=== PATIENT | female | born 1965 | race Caucasian/White ===

== ENCOUNTER 2017-08-06 09:40 | Inpatient (IN) ==
--- NOTE | 2017-08-05 22:37 | Discharge Summary ---
<Arleen Barrios E - Last Filed: 08/06/17 08:40> Date of Encounter: 08/06/17 - Discharge Diagnosis (1) Arthritis of left knee Priority: Primary Status: Chronic (2) Status post total left knee replacement Priority: Primary Status: Acute (3) FARAZ (obstructive sleep apnea) Priority: Secondary Status: Chronic (4) HTN (hypertension) Priority: Secondary Status: Chronic Qualifiers: Hypertension type: unspecified Qualified Code(s): I10 - Essential (primary ) hypertension (5) Hypothyroid Priority: Secondary Status: Chronic Qualifiers: Hypothyroidism type: unspecified Qualified Code(s): E03.9 - Hypothyroidism , unspecified (6) Frequent headaches Priority: Secondary Status: Chronic (7) GERD (gastroesophageal reflux disease) Priority: Secondary Status: Chronic Qualifiers: Esophagitis presence: esophagitis presence not specified Qualified Code(s) : K21.9 - Gastro-esophageal reflux disease without esophagitis (8) Obesity Priority: Secondary Status: Chronic Qualifiers: Obesity type: unspecified obesity type Obesity classification: unspecified obesity classification Serious obesity comorbidity presence: unspecified whether serious comorbidity present Qualified Code(s): E66.9 - Obesity, unspecified - Hospital Course Hospital course: Ms. Burns is a 51 year old female - Time Spent with Patient Total time spent providing and/or coordinating discharge services: - Discharge Medications Home Medications: Cetirizine HCl [24Hour Allergy] 10 mg PO DAILY 05/03/17 [History] Escitalopram [Lexapro] 10 mg PO DAILY 05/03/17 [History] Levothyroxine Sodium [Levo-T] 175 mcg PO 0630 05/03/17 [History] Lisinopril/Hydrochlorothiazide [Zestoretic 10-12.5 mg Tablet] 1 tab PO DAILY [History] Omeprazole [PriLOSEC] 40 mg PO DAILY 05/03/17 [History] Topiramate [Topamax] 100 mg PO HS 05/03/17 [History] Aspirin Enteric Coated [Aspirin EC] 325 mg PO BID 10 Days #20 tablet. [Rx] Allergies/Adverse Reactions: 3 Allergy/AdvReac Type Severity Reaction Status Date / Time acetaminophen Allergy Hives Verified 08/06/17 10:31 [From Robb-Mei] codeine Allergy Anaphylaxis Verified 08/06/17 10:31 hydrocodone Allergy Anaphylaxis Verified 08/06/17 10:31 Hydromorphone [From Dilaudid] Allergy Hives Verified 08/06/17 10:31 meperidine [From Demerol] Allergy Hives Verified 08/06/17 10:31 morphine Allergy Hives Verified 08/06/17 10:31 Oxycodone [From Percocet] Allergy Hives Verified 08/06/17 10:31 propoxyphene Allergy Hives Verified 08/06/17 10:31 [From Darvocet-N] Sulfa (Sulfonamide Allergy Hives Verified 08/06/17 10:31 Antibiotics) sumatriptan [From Imitrex] Allergy Chest Pain Verified 08/06/17 10:31 tramadol [From Ultram] Allergy Hives Verified 08/06/17 10:31 Primary care physician: Gianna Escalona CNP - Patient Status Disposition: Home, Self-Care Condition: Good - Discharge Instructions Follow Up With: Gianna Escalona CNP [Primary Care Provider] - Patty La DO [Family Provider] - <Jadiel Ayala - Last Filed: 08/07/17 06:50> Orders not resulted at time of discharge: Pending orders 08/06/17 01:00 XR knee LT limited 1-2V [XR] Routine Hemoglobin and Hematocrit [HEME] Routine 08/06/17 10:57 US anesthesia pain block [US] Stat Date of Encounter: 08/07/17 Time of Encounter: 06:49 - Discharge Diagnosis (1) Obesity (BMI 35.0-39.9 without comorbidity) Priority: Secondary Status: Chronic (2) Arthritis of left knee Priority: Primary Status: Chronic (3) FARAZ (obstructive sleep apnea) Priority: Secondary Status: Chronic (4) Status post total left knee replacement Priority: Primary Status: Acute (5) HTN (hypertension) Priority: Secondary Status: Chronic Qualifiers: Hypertension type: unspecified Qualified Code(s): I10 - Essential (primary ) hypertension (6) Hypothyroid Priority: Secondary Status: Chronic Qualifiers: Hypothyroidism type: unspecified Qualified Code(s): E03.9 - Hypothyroidism , unspecified (7) GERD (gastroesophageal reflux disease) Priority: Secondary Status: Chronic Qualifiers: Esophagitis presence: esophagitis presence not specified Qualified Code(s) : K21.9 - Gastro-esophageal reflux disease without esophagitis - Hospital Course Hospital course: Ms. Burns is a 51 year old female Status post left total knee replacement The patient had an uneventful postoperative course. They received antibiotics and physical therapy and were discharged in stable condition. There will follow -up in the office in 2 weeks. - Time Spent with Patient Total time spent providing and/or coordinating discharge services: Primary care physician: Gianna Escalona CNP - Patient Status Functional capacity at discharge: uses cane/walker Overall status at discharge: patient is progressing back to baseline
--- NOTE | 2017-08-06 08:16 | Anesthesia Evaluation PreOp ---
Date of Encounter: 08/06/17 Time of Encounter: 10:40 - Past History Planned Operation: Left Total Knee Arthroplasty Cardiac History: HTN Pulmonary History: FARAZ Dx (recently diagnosed, does not have CPAP machine yet) LAWN CARETAKER History: Other (chronic pain) Other Medical History: Thyroid, GERD, Other (anxiety) Anesthesia History: No Prior Anesthetic Complications, Past Anesthesia ( hysteretcomy) Alcohol Use: occasionally Drug use: none Medications and Allergies Cetirizine HCl [24Hour Allergy] 10 mg PO DAILY 05/03/17 [History] Escitalopram [Lexapro] 10 mg PO DAILY 05/03/17 [History] Levothyroxine Sodium [Levo-T] 175 mcg PO 0630 05/03/17 [History] Lisinopril/Hydrochlorothiazide [Zestoretic 10-12.5 mg Tablet] 1 tab PO DAILY [History] Omeprazole [PriLOSEC] 40 mg PO DAILY 05/03/17 [History] Topiramate [Topamax] 100 mg PO HS 05/03/17 [History] Aspirin Enteric Coated [Aspirin EC] 325 mg PO BID 10 Days #20 tablet. [Rx] 3 Allergy/AdvReac Type Severity Reaction Status Date / Time acetaminophen Allergy Hives Verified 08/06/17 10:31 [From Darvocet-N] codeine Allergy Anaphylaxis Verified 08/06/17 10:31 hydrocodone Allergy Anaphylaxis Verified 08/06/17 10:31 Hydromorphone [From Dilaudid] Allergy Hives Verified 08/06/17 10:31 meperidine [From Demerol] Allergy Hives Verified 08/06/17 10:31 morphine Allergy Hives Verified 08/06/17 10:31 Oxycodone [From Percocet] Allergy Hives Verified 08/06/17 10:31 propoxyphene Allergy Hives Verified 08/06/17 10:31 [From Darvocet-N] Sulfa (Sulfonamide Allergy Hives Verified 08/06/17 10:31 Antibiotics) sumatriptan [From Imitrex] Allergy Chest Pain Verified 08/06/17 10:31 tramadol [From Ultram] Allergy Hives Verified 08/06/17 10:31 - Meds/Allergy Pre-op Review Medications Reviewed: Yes Allergies Reviewed: Yes Beta Blockers on Current Med List: No Anesthesia Results - Labs Laboratory Tests 07/13/17 07/13/17 07/13/17 11:03 11:03 11:03 WBC 11.0 Hgb 13.7 Hct 41.2 Plt Count 343 PT 10.8 INR 1.0 APTT 30.7 Sodium 139 Potassium 4.4 BUN 16 Creatinine 0.81 - Imaging EKG: report reviewed (04/27/2017 SINUS RHYTHM INFERIOR MYOCARDIAL INFARCTION, PROBABLY OLD) Additional studies: 07/11/2017 Stress Impression: Perfusion imaging was negative for ischemia or infarct. Anterior/anterolateral wall artifact. Low level exercise/ pharmacologic stress ECG is negative for ischemia at level of heart rate achieved. Gated EF > 70%. 07/11/2017 Echo Impressions: LVEF 60-65%. Moderate left ventricular diastolic dysfunction. Normal right ventricular structure and function. Mild mitral regurgitation. Mild aortic regurgitation. No pulmonary hypertension. Anesthesia Exam O2 Sat Height 1.6 m Height 1.6 m Weight 97.522 kg Weight 97.522 kg O2 Sat by Pulse Oximetry 97 Vital Signs Temp Pulse Resp BP Pulse Ox 98.6 F 84 18 131/83 97 08/06/17 10:16 08/06/17 10:16 08/06/17 10:16 08/06/17 10:16 08/06/17 10:16 Height: 5'3'' Weight: 215 lbs NPO (# of Hours): 8 Pain Scale: 2 (left knee) Pain Scale Used: Numeric (1 - 10) - HEENT Pupil (Motor): EOMI Mallampati: II Teeth: Normal Oral Opening: Greater than 3 - LAWN CARETAKER LOC: Oriented LAWN CARETAKER Motor: Normal RUE, Normal LUE, Normal RLE, Normal LLE, Normal Face LAWN CARETAKER Sensory: Normal: RUE, LUE, RLE, LLE, Face - Cardiac Rhythm: Regular Murmur: None - Pulmonary Breath Sounds: bilateral Clear Respiratory Effort: Symmetrical Anesthesia Assess/Plan ASA Score: 2 Modified Erwin Scale for Level of Consciousness: Cooperative, oriented, and tranquil Anesthetic Plan: General, Regional Monitoring Plan: Standard Monitors Recovery Plan: PACU
[2017-08-06] MEDS ORDERED: CeFAZolin Syr 2,000MG/20 ML 2,000 MG/20 ML SYRINGE IVPB ONE (09:57)
[2017-08-06] MEDS ORDERED: Ringers Solution, Lactated 1,000 ML IVC SCH ×2 (10:00→13:15)
--- NOTE | 2017-08-06 11:07 | History & Physical Report ---
Date of Encounter: 08/06/17 Time of Encounter: 11:07 24 Hour HP Update - Instructions Instructions: If the History and Physical is less than 30 days old and was completed prior to A.M. admission and or procedure and has NOT been updated on calendar day of procedure please complete this update prior to performing procedure. - Update Patient reports changes in Medical Condition: No Changes in examination, assessment, or condition: No Changes in Medication: No Preop tests/diagnostics Reviewed: Yes Surgery Remains Indicated: Yes Consent for Planned Operative Procedure(s) Verified: Yes - Pre-Operative Checklist Preoperative Checklist Indicated: No Prophylactic Antibiotic Ordered: Yes Is VTE Prophylaxis Indicated?: Yes
[2017-08-06] MEDS ORDERED: Ondansetron 4 MG/2 ML VIAL ONE (11:49)
[2017-08-06] MEDS ORDERED: Lidocaine -MPF 2% 2 ML VIAL ONE (11:49)
[2017-08-06] MEDS ORDERED: *HR* Propofol 200 MG/20 ML VIAL IVP ONE (11:49)
[2017-08-06] MEDS ORDERED: Dexamethasone 4 MG/ML VIAL ONE (11:49)
[2017-08-06] MEDS ORDERED: *HR* FentaNYL (PF) 100 MCG/2 ML VIAL ONE ×3 (11:49→15:22)
[2017-08-06] MEDS ORDERED: *HR* Midazolam HCl 2 MG/2 ML VIAL ONE (11:49)
[2017-08-06] MEDS ORDERED: ROPIVACAINE HCL/PF 0.5% 30 ML VIAL ONE (12:33)
[2017-08-06] MEDS ORDERED: Bupivacaine/Clonidine Syringe 1 EACH SYRINGE ONE (12:33)
[2017-08-06] MEDS ORDERED: Ethanol\\Acetic Acid\\Na Ace\\Ben 1,000 ML IRRIG.SOLN IR ONE (12:56)
--- NOTE | 2017-08-06 12:56 | Anesthesia Procedures ---
Date of Encounter: 08/06/17 Time of Encounter: 12:45 Procedures: Anesthesia - Nerve Block Procedure Date: 08/06/17 Time: 12:40 Surgical Procedure: left robotic total knee Checklist: Correct Patient Identifier, Correct procedure, History checked Correct side: Left Blood Thinner: No Monitor Applied: EKG, BP, Pulse Oximetry Sedation: Versed (mg): 2 Sedation: Fentanyl (mcg): 100 Block Type: Other (adductor canal, iPACK) Sterile Technique: Yes Ultrasound used: Yes Anatomy identified: Yes Visual spread of Local: No Neuro Stimulation: No Prep: Chlorhexadine Needle: 21 x 100 mm Stimuplex Local: 0.25% Bupivicaine w/Clonidine 20 mcg/cc (20 ml iPACK), Ropivacaine (0.5% 30 ml 30 ml adductor canal) Volume (cc): 50 total Number of Attempts: 1 Complications: None/effective block Vitals: O2 Sat Height 1.6 m Height 1.6 m Weight 97.522 kg Weight 97.522 kg O2 Sat by Pulse Oximetry 100 O2 Sat by Pulse Oximetry 97 Vital Signs Temp Pulse Resp BP Pulse Ox 98.6 F 84 18 131/83 97 08/06/17 10:16 08/06/17 10:16 08/06/17 10:16 08/06/17 10:16 08/06/17 10:16
[2017-08-06] MEDS ORDERED: Albuterol 2.5 MG/3 ML NEBULIZER IH ONE (13:04)
[2017-08-06] MEDS ORDERED: Ondansetron 4 MG/2 ML VIAL IVP ONE (13:04)
[2017-08-06] MEDS ORDERED: Acetaminophen IV 1,000 MG/100 ML INFUS..BTL IVPB ONE (13:04)
[2017-08-06] MEDS ORDERED: Naloxone 0.4 MG/ML INJ IVP PRN ×2 (13:04→17:16)
[2017-08-06] MEDS ORDERED: *HR* Promethazine 25 MG/ML VIAL IVP PRN (13:04)
[2017-08-06] MEDS ORDERED: EPHEDrine 50 MG/ML VIAL ONE (13:42)
--- NOTE | 2017-08-06 14:17 | Orthopedic Operative Note ---
Date of procedure: 08/06/17 Pre-op diagnosis: Left knee arthritis Post-op diagnosis: same Procedure: Procedure: Left robotic-assisted Total knee replacement Estimated blood loss:400 cc Hardware: Metal and polyethylene replacement. [place] Femur: 3 Tibia: 3 TS insert: 13 Patella: 36 Exam Under anesthesia: 1 degree hyperextension 7 degree varus as calculated by the robot full flexion and no instability Procedural Notes: Grade 4 arthritic changes medial compartment patellofemoral joint. Operative procedure: The patient was brought to the operating room and placed on the operating room table. After general anesthesia was administered the operative knee was examined. Findings were noted in the exam under anesthesia. The operative extremity was prepped and draped in sterile surgical fashion. The patient received IV antibiotics prior to skin incision. A standard midline incision was made centered over the patella. The incision was made through the skin and subcutaneous tissue. A medial parapatellar tendon approach was performed. Care was taken to preserve tissue along the medial aspect of the patella. And to protect the patella tendon. The deep MCL was released off the medial tibia. The infra patella fat pad was excised. The patella was everted and cut was made at the level of the insertion of the quadriceps and patella tendon. The patella was sized the guide was seated and the lug holes are drilled. Knee was brought into flexion. Patient noted to have grade 4 arthritic changes medial compartment and patellofemoral joint. Steinmann pins were placed in the tibia and the femur for the tibial and femoral arrays respectively. Checkpoints were also placed in the tibia and the femur for calculation purposes. The knee including the femur and the tibial registered. Osteophytes , ACL and PCL were excised at this point. Extension and flexion were assessed with a valgus stress components were adjusted on the computer to balance the knee. Femoral cuts were made first with robotic assistance, these included the anterior cut posterior cuts chamfer cuts. Tibial cut was then performed with robotic assistance as well. Bone fragments were removed, as well as the medial and lateral meniscus. The size 3 femoral guide was seated box cut was made lug holes are drilled. The size 3 tibial tray was seated and prepared with the fin cutter. Trial reduction with the 13 S Jeri revealed extension of 0 degree and 3 degree varus full flexion. No varus valgus instability. Trial reduction revealed excellent patella tracking. All trial components were removed all bony surfaces were irrigated. The Tibia was seated followed by the femur, The Jeri size 13 was seated and secured patella. Patient had similar findings for motion and stability. The knee was closed by the PA. The knee was then irrigated out with 2 L of pulse irrigation. The extensor mechanism was closed with #2 FiberWire suture and #2 PDS suture. The subcutaneous tissue was then irrigated and closed deep with #1 PDS suture superficially with 0 PDS suture and skin was closed with zip tie The patient was then placed in a sterile dressing and a postoperative brace extubated and transferred to recovery room in stable condition. Anesthesia: GETA Surgeon: Jadiel Ayala Was there an account assistant present: Yes Loss Prevention Research Engineer: Shana Ellis Estimated blood loss (cc): 400 Condition: stable Disposition: PACU
[2017-08-06] MEDS: *HR* Meperidine 25 MG/ML SYRINGE IVP PRN ×2 (15:00→15:15)
[2017-08-06] MEDS: MORPHINE SUL Oral CONC 10 MG/0.5 ML ORAL.SYG SL PRN ×2 (15:08→15:18)
[2017-08-06] MEDS: *HR* FentaNYL (PF) 100 MCG/2 ML VIAL IVP PRN ×2 (15:22→15:32)
[2017-08-06 15:24] LABS: Hematocrit 36.2 % (35.3-44.9); Hemoglobin 12.3 g/dL (11.5-15.4)
[2017-08-06] MEDS: *HR* HYDROmorphone (PF) 1 MG/ML SYRINGE IVP PRN ×2 (16:09→16:19)
[2017-08-06] MEDS ORDERED: Ondansetron 4 MG/2 ML VIAL IVP PRN (17:16)
[2017-08-06] MEDS ORDERED: Sennosides 8.6 MG TABLET PO PRN (17:16)
[2017-08-06] MEDS ORDERED: Temazepam 15 MG CAPSULE PO PRN (17:16)
[2017-08-06] MEDS ORDERED: MOM Conc 10 ML UD.LIQ PO PRN (17:16)
[2017-08-06] MEDS ORDERED: CeFAZolin Pre 2,000 MG/100 ML 2,000 MG/100 ML BAG IVPB SCH (17:16)
--- NOTE | 2017-08-06 17:16 | Anesthesia Evaluation Post Op ---
Date of Encounter: 08/06/17 Time of Encounter: 17:16 Notes: Patient's vital signs have been reviewed. Patient is stable postoperatively and has adequately recovered from anesthesia. Patient is determined to have stable airway patency and respiratory function including respiratory rate and oxygen saturation. Patient has a stable heart rate, blood pressure and adequate hydration. Patients mental status is acceptable. Patients temperature is appropriate. Pain and nausea are adequately controlled. - Discharge PostOp Status: Transfer Patient to floor
[2017-08-06] MEDS ORDERED: *HR* Enoxaparin 30 MG/0.3 ML SYRINGE SQ SCH (18:00)
[2017-08-06] MEDS: *HR* Enoxaparin 30 MG/0.3 ML SYRINGE SQ SCH (19:50)
[2017-08-06] MEDS: Ketorolac 30 MG/ML VIAL IVP PRN (19:51)
[2017-08-06] MEDS: Topiramate 100 MG TABLET PO SCH (19:51)
[2017-08-06] MEDS: Gabapentin 300 MG CAPSULE PO SCH (19:51)
[2017-08-06] MEDS: Acetaminophen IV 1,000 MG/100 ML INFUS..BTL IVPB SCH (20:30)
[2017-08-06] MEDS: CeFAZolin Pre 2,000 MG/100 ML 2,000 MG/100 ML BAG IVPB SCH (21:49)
[2017-08-07 01:22] LABS: Hematocrit 31.6 % (35.3-44.9)
[2017-08-07 01:35] LABS: Hemoglobin 10.6 g/dL (11.5-15.4)
[2017-08-07 01:42] LABS: BUN/Creatinine Ratio 20 (6-26); Blood Urea Nitrogen 16 mg/dL (6-20); Calcium 8.5 mg/dL (8.6-10.3); Carbon Dioxide 27 mEq/L (23-29); Chloride 103 mEq/L (98-107); Glucose 149 mg/dL (70-105); Osmolality,Calculated 284 (280-300); Potassium 4.1 mEq/L (3.5-5.1); Sodium 135 mEq/L (136-145); eGFR For African Americans > 60 (> 60); eGFR For Non-African Americans > 60 (> 60)
[2017-08-07] MEDS: Acetaminophen IV 1,000 MG/100 ML INFUS..BTL IVPB SCH ×3 (02:27→11:53)
[2017-08-07] MEDS: *HR* Enoxaparin 30 MG/0.3 ML SYRINGE SQ SCH ×2 (05:49→16:53)
[2017-08-07] MEDS: Ketorolac 30 MG/ML VIAL IVP PRN (05:49)
[2017-08-07] MEDS: CeFAZolin Pre 2,000 MG/100 ML 2,000 MG/100 ML BAG IVPB SCH (05:49)
--- NOTE | 2017-08-07 06:50 | Orthopedics Progress Note ---
Date of Encounter: 08/07/17 Time of Encounter: 06:50 - Assessment and Plan (1) Obesity (BMI 35.0-39.9 without comorbidity) Current Visit: Yes Status: Chronic (2) Arthritis of left knee Current Visit: No Status: Chronic (3) FARAZ (obstructive sleep apnea) Current Visit: No Status: Chronic (4) Status post total left knee replacement Current Visit: No Status: Acute (5) HTN (hypertension) Current Visit: No Status: Chronic Qualifiers: Hypertension type: unspecified Qualified Code(s): I10 - Essential (primary ) hypertension (6) Hypothyroid Current Visit: No Status: Chronic Qualifiers: Hypothyroidism type: unspecified Qualified Code(s): E03.9 - Hypothyroidism , unspecified (7) GERD (gastroesophageal reflux disease) Current Visit: No Status: Chronic Qualifiers: Esophagitis presence: esophagitis presence not specified Qualified Code(s) : K21.9 - Gastro-esophageal reflux disease without esophagitis Subjective Interval history: Patient was seen this morning doing well without complaints. Afebrile vital signs stable. Operative extremity: Neurovascularly intact Dressing clean dry and intact Calves nontender Assessment and plan: Continue with postoperative care Hematocrit 31 discharged today Objective Vital signs: Vital Signs Temp Pulse Resp BP Pulse Ox 08/07/17 04:40 98.4 F 87 17 99/66 96 08/06/17 23:55 98 F 94 18 103/69 97 08/06/17 20:28 98.6 F 96 15 116/49 98 08/06/17 19:22 98.1 F 100 18 130/66 99 08/06/17 18:16 97.8 F 102 12 101/69 97 08/06/17 17:46 97.8 F 93 16 108/64 08/06/17 17:17 97.8 F 90 16 108/71 96 08/06/17 16:55 111 16 117/71 94 08/06/17 16:45 86 16 107/68 94 08/06/17 16:35 98 F 90 12 102/77 93 08/06/17 16:25 110 16 108/80 96 08/06/17 16:15 114 16 100/84 96 08/06/17 16:05 98.2 F 101 18 112/80 96 08/06/17 15:55 108 16 119/91 98 08/06/17 15:45 112 16 114/75 97 04/30/18 15:35 98.1 F 105 14 106/85 98 08/06/17 15:25 85 16 114/82 96 08/06/17 15:15 98 20 116/88 97 08/06/17 15:05 96 20 120/31 98 08/06/17 14:55 99.2 F 75 16 134/92 95 08/06/17 13:06 70 127/79 99 08/06/17 12:35 77 137/93 100 08/06/17 10:16 98.6 F 84 18 131/83 97 Intake and Output 08/06/17 08/06/17 08/07/17 15:59 23:59 07:59 Intake Total 1100 / 1100 200 / 200 100 / 100 Output Total 400 / 400 750 / 750 Balance 700 / 700 -550 / -550 100 / 100 Intake: IV Fluids 1100 / 1100 200 / 200 100 / 100 Lactated Ringers 1,000 ML @ 25 1000 / 1000 mls/hr IVC .Q24H ANAI Rx#: [id number] Ofirmev 1,000 mg/100 ml 1,000 100 / 100 100 / 100 100 / 100 mg In 100 ml @ 400 mls/hr IVPB Q6H ANAI Rx#:[id number] Ancef Premix 2,000 MG/100 ML 2, 100 / 100 000 mg In 100 ml @ 200 mls/hr IVPB Q8H ANAI Rx#:[id number] Output: Urine 750 / 750 Estimated Blood Loss 400 / 400 Other: # Voids 1 1 Weight 97.522 kg - Labs CBC & BMP: 08/07/17 00:52 08/07/17 00:52 Labs: Abnormal lab results Hgb 10.6 g/dL (11.5-15.4) L D 08/07/17 00:52 Hct 31.6 % (35.3-44.9) L 08/07/17 00:52 Sodium 135 mEq/L (136-145) L 08/07/17 00:52 Glucose 149 mg/dL (70-105) H 08/07/17 00:52 Calcium 8.5 mg/dL (8.6-10.3) L 08/07/17 00:52 - VTE Documentation of Mechanical Device: Venous foot pump, device Consult Discharge Plan - Plan Referrals: Gianna Escalona, INTEL ANALYST [Primary Care Provider] - Patty La DO [Family Provider] -
[2017-08-07 07:08] VITALS: BP 105/74
[2017-08-07] MEDS: Gabapentin 300 MG CAPSULE PO SCH ×2 (08:36→15:36)
[2017-08-07] MEDS: Topiramate 100 MG TABLET PO SCH (08:42)
[2017-08-07] MEDS ORDERED: Loratadine 10 MG TABLET PO SCH (09:00)
[2017-08-07] MEDS: Ibuprofen 800 MG TABLET PO PRN ×2 (11:19→16:53)
[2017-08-07] MEDS: Ringers Solution, Lactated 1,000 ML IVC SCH (11:57)
--- NOTE | 2017-08-07 12:39 | Event Note ---
Date of Encounter: 08/07/17 Time of Encounter: 11:50 PCR- POD#1 L TKR Robotic 08/06/17 Jamie PCR - Patient seen at bedside. Labwork and medications reviewed. Pain control: Adequate - c/o swelling and calf tenderness - STAT doppler today r /o dvt. Participating in PT. All questions and concerns addressed. Educated on use of incentive spirometer, ambulation, and hydration. Patient educated on post-operative restrictions and care. Addressed: Patient requesting D/c Script of Morphine or Dilaudid. Patient states the dose of Morphine she received in PACU worked well but made her itchy. Discussed reexposure outside controlled environment with her history of anaphylaxis is ill-advised. Discussed with Dr. Ayala who would like to continue nonnarcotic based pain control. Patient to d/c with Ibuprofen 800mg TID, Acetaminophen 500mg QID, Gabapentin 600mg TID, and Cyclobenzaprine 10mg TID D/C plan: Home with outpatient therapy today after doppler
[2017-08-07] MEDS ORDERED: Apixaban 5 MG TABLET PO SCH (21:00)
== END 2017-08-07 18:03 | disposition home or self-care (01) | DRG 302 ==
LOC: SAMDAY 09:40 → 3NENU 17:10
PROVIDERS: ADMIT Orthopaedic Surgery; ATTEND Orthopaedic Surgery

== ENCOUNTER 2017-09-02 19:01 | Inpatient (IN) ==
[2017-09-02] MEDS ORDERED: 0.9 % Sodium Chloride 1,000 ML IVC ONE ×2 (19:15→21:07)
[2017-09-02 19:50] LABS: Basophils % 0.3 %; Eosinophils # 0.6 K/mcL (0.0-0.6); Eosinophils % 4.1 %; Hematocrit 32.8 % (35.3-44.9); Hemoglobin 11.3 g/dL (11.5-15.4); Immature Granulocytes % 0.4 % (0-4); Lymphocytes # 3.1 K/mcL (0.6-4.6); Lymphocytes % 22.2 %; Mean Corpuscular HGB Conc 34.5 g/dL (31.6-35.5); Mean Corpuscular Hemoglobin 31.3 pg (28.0-33.3); Mean Corpuscular Volume 90.9 fL (83.0-100.0); Mean Platelet Volume 10.1 fL (9.4-12.4); Monocytes # 0.8 K/mcL (0.0-1.3); Monocytes % 5.8 %; Neutrophils # 9.3 K/mcL (1.6-8.9); Platelet Count 356 K/mcL (140-400); Red Blood Count 3.61 M/mcL (3.82-4.97); Red Cell Distribution Width 13.4 % (11.5-14.5); Segmented Neutrophils % 67.2 %
[2017-09-02 20:09] LABS: Calcium 9.5 mg/dL (8.6-10.3); Magnesium 1.9 mg/dL (1.6-2.6); Phosphorous 3.5 mg/dL (2.7-4.5); Potassium 3.4 mEq/L (3.5-5.1)
--- NOTE | 2017-09-02 20:16 | Emergency Department Note ---
Disposition Clinical Impression: Lower extremity cellulitis Qualifiers: Laterality: left Qualified Code(s): L03.116 - Cellulitis of left lower limb Disposition: Admitted As Inpatient Condition: Good Referrals: Gianna Escalona CNP [Primary Care Provider] - Patty La DO [Family Provider] - General Adult HPI - General Chief complaint: ED Extremity Problem,Nontraumatic Stated complaint: L Knee Infection Time Seen by Provider: 09/02/17 19:07 Source: patient Limitations: no limitations - History of Present Illness Pain Scale: 3 - Related Data Home Medications Medication Instructions Recorded Confirmed Cetirizine HCl [24Hour Allergy] 10 mg PO DAILY 05/03/17 08/06/17 Escitalopram [Lexapro] 10 mg PO DAILY 05/03/17 08/06/17 Levothyroxine Sodium [Levo-T] [place] [address]/03/17 08/06/17 Lisinopril/Hydrochlorothiazide 1 tab PO DAILY 05/03/17 08/06/17 [Zestoretic 10-12.5 mg Tablet] Omeprazole [PriLOSEC] 40 mg PO DAILY 05/03/17 08/06/17 Topiramate [Topamax] 100 mg PO HS 05/03/17 08/06/17 Previous Rx's Medication Instructions Recorded Aspirin Enteric Coated [Aspirin EC] 325 mg PO BID 10 Days #20 tablet. 08/06/17 Allergies Allergy/AdvReac Type Severity Reaction Status Date / Time acetaminophen Allergy Hives Verified 08/06/17 10:31 [From Darvocet-N] codeine Allergy Anaphylaxis Verified 08/06/17 10:31 hydrocodone Allergy Anaphylaxis Verified 08/06/17 10:31 Hydromorphone [From Dilaudid] Allergy Hives Verified 08/06/17 10:31 meperidine [From Demerol] Allergy Hives Verified 08/06/17 10:31 morphine Allergy Hives Verified 08/06/17 10:31 Oxycodone [From Percocet] Allergy Hives Verified 08/06/17 10:31 propoxyphene Allergy Hives Verified 08/06/17 10:31 [From Darvocet-N] Sulfa (Sulfonamide Allergy Hives Verified 08/06/17 10:31 Antibiotics) sumatriptan [From Imitrex] Allergy Chest Pain Verified 08/06/17 10:31 tramadol [From Ultram] Allergy Hives Verified 08/06/17 10:31 Past Medical History - Past Medical History Medical history: Reports: cancer, GERD, hypertension Surgical history: Reports: cholecystectomy, hysterectomy Psychiatric history: Reports: no psych history - Social History Smoking Status: Never smoker Smokeless Tobacco Status: No Alcohol use: Reports: occasionally Drug use: Reports: none Physical Exam - General Limitations: no limitations General appearance: alert Course Vital Signs Temperature 98.0 F 09/02/17 19:02 Pulse Rate 115 09/02/17 19:02 Respiratory Rate 14 09/02/17 19:02 Blood Pressure 106/76 09/02/17 19:02 O2 Sat by Pulse Oximetry 99 09/02/17 19:02 Temperature 98.0 F 09/02/17 19:02 Pulse Rate 115 09/02/17 19:02 Respiratory Rate 14 09/02/17 19:02 Blood Pressure 106/76 09/02/17 19:02 O2 Sat by Pulse Oximetry 99 09/02/17 19:02 Oxygen Delivery Oxygen Delivery Room Air Medical Decision Making - Lab Data Result diagrams: 09/02/17 19:33 Lab Results 09/02/17 Range/Units 19:33 WBC 13.8 H (4.3-11.1) K/mcL RBC 3.61 L (3.82-4.97) M/mcL Hgb 11.3 L (11.5-15.4) g/dL Hct 32.8 L (35.3-44.9) % MCV 90.9 (83.0-100.0) fL MCH 31.3 (28.0-33.3) pg MCHC 34.5 (31.6-35.5) g/dL RDW 13.4 (11.5-14.5) % Plt Count 356 (140-400) K/mcL MPV 10.1 (9.4-12.4) fL Immature Gran % 0.4 (0-4) % Seg Neutrophils % 67.2 % Lymphocytes % 22.2 % Monocytes % 5.8 % Eosinophils % 4.1 % Basophils % 0.3 % Neutrophils # 9.3 H (1.6-8.9) K/mcL Lymphocytes # 3.1 (0.6-4.6) K/mcL Monocytes # 0.8 (0.0-1.3) K/mcL Eosinophils # 0.6 (0.0-0.6) K/mcL Basophils # 0.0 (0.0-0.2) K/mcL Attestation Statement - Attestation Attestation: I examined this patient and my medical decision-making was reviewed with the Resident Physician. I agree with the documented findings, disposition and treatment plan as described except to the extent set forth below. 51 yaima old talat presents to the ED with complaints of left knee cellulitis and the redness is worsening and had a total knee replacement per Dr. Ayala about 30 days ago and states that the incinsion site was healing well but in the pst few days she has been noticing incresed draingage fromthe incision site at the bottom and now the rednes is streaking down her legg. SHe is neurovasculary intact and and ambulatory. WE have consutld with Dr. Mccray renewable energy consultant ortho and he would ik jigar started on vanc and then admitted to medicine
--- NOTE | 2017-09-02 20:43 | Emergency Department Note ---
Disposition Clinical Impression: ERENDIRA (acute kidney injury) Lower extremity cellulitis Qualifiers: Laterality: left Qualified Code(s): L03.116 - Cellulitis of left lower limb Incisional infection Qualifiers: Encounter type: initial encounter Qualified Code(s): T81.4XXA - Infection following a procedure, initial encounter Disposition: Admitted As Inpatient Condition: Fair Time of Disposition: 21:48 Extremity Problem HPI - General Chief complaint: ED Extremity Problem,Nontraumatic Stated complaint: L Knee Infection Time Seen by Provider: 09/02/17 19:07 Source: patient Limitations: no limitations Nursing Notes Reviewed: Yes Vital Signs Reviewed: Yes - History of Present Illness HPI Narrative: Patient is a 51-year-old female who presents to [facility] ED with a chief complaint of left knee infection status post total knee replacement on 08/06/[address] Ayala. States she noted some redness 2 days ago around the lower part of the incision site. She called the orthopedic surgeon's office who placed her on Bactrim. States she has had 3 doses of this. The redness is spreading to involve the back area of her leg as well. States she has a lot of pain with palpation of that region. It started leaking [place] fluid today from the lower part of her incision site. Denies any fever or chills. States today she felt abnormal like she was drunk. No chest pain or difficulty breathing or abdominal pain. No problems with urination or bowel movements. Onset (ago): day(s) (2) Consistency: constant, Worsening Injury Location: left, lower extremity Pain Scale: 3 Quality: aching Radiation: none Improves with: nothing Worsens with: nothing Associated symptoms: Reports: change in appearance, swelling, redness. Denies: chest pain, shortness of breath, abdominal pain, back pain, fever - Related Data Home Medications Medication Instructions Recorded Confirmed Cetirizine HCl [24Hour Allergy] 10 mg PO DAILY 05/03/17 08/06/17 Escitalopram [Lexapro] 10 mg PO DAILY 05/03/17 08/06/17 Levothyroxine Sodium [Levo-T] 175 mcg PO 0630 05/03/17 08/06/17 Lisinopril/Hydrochlorothiazide 1 tab PO DAILY 05/03/17 08/06/17 [Zestoretic 10-12.5 mg Tablet] Omeprazole [PriLOSEC] 40 mg PO DAILY 05/03/17 08/06/17 Topiramate [Topamax] 100 mg PO HS 05/03/17 08/06/17 Previous Rx's Medication Instructions Recorded Aspirin Enteric Coated [Aspirin EC] 325 mg PO BID 10 Days #20 tablet. 08/06/17 Allergies Allergy/AdvReac Type Severity Reaction Status Date / Time acetaminophen Allergy Hives Verified 08/06/17 10:31 [From Darvocet-N] codeine Allergy Anaphylaxis Verified 08/06/17 10:31 hydrocodone Allergy Anaphylaxis Verified 08/06/17 10:31 Hydromorphone [From Dilaudid] Allergy Hives Verified 08/06/17 10:31 meperidine [From Demerol] Allergy Hives Verified 08/06/17 10:31 morphine Allergy Hives Verified 08/06/17 10:31 Oxycodone [From Percocet] Allergy Hives Verified 08/06/17 10:31 propoxyphene Allergy Hives Verified 08/06/17 10:31 [From Darvocet-N] Sulfa (Sulfonamide Allergy Hives Verified 08/06/17 10:31 Antibiotics) sumatriptan [From Imitrex] Allergy Chest Pain Verified 08/06/17 10:31 tramadol [From Ultram] Allergy Hives Verified 08/06/17 10:31 All systems ED: reviewed and negative except as stated. Past Medical History - Past Medical History Attestation: Yes The following information was validated with the patient. Source: patient Medical history: Reports: cancer, GERD, hypertension Surgical history: Reports: cholecystectomy, hysterectomy Psychiatric history: Reports: no psych history - Social History Smoking Status: Never smoker Smokeless Tobacco Status: No Alcohol use: Reports: occasionally Drug use: Reports: none Physical Exam - General Limitations: no limitations General appearance: alert - Head Head exam: atraumatic, normocephalic, normal inspection - Eye Eye exam: Present: normal appearance, EOMI - ENT ENT exam: normal exam, normal oropharynx, mucous membranes moist - Neck Neck exam: Present: normal inspection, full ROM, trachea midline - Chest Chest inspection: Present: normal inspection, symmetric chest wall rise - Respiratory Respiratory exam: Present: normal lung sounds bilaterally - Cardiovascular Cardiovascular exam: Present: normal rhythm, tachycardia, normal heart sounds - Abdominal Exam Abdominal exam: Present: soft, Non-Tender. Absent: tenderness, distention, guarding, rebound, rigidity - Extremities Exam Extremities exam: Present: normal inspection, full ROM. Absent: tenderness, pedal edema - Back Exam Back exam: Present: normal inspection, full ROM. Absent: tenderness - Neurological Exam Neurological exam: Present: alert, oriented X3 - Psychiatric Psychiatric exam: Present: normal affect, normal mood - Skin Skin exam: Present: warm, dry, intact, normal color Course Course Narrative: Patient seen and examined. Left knee infection. She has an area of erythema surrounding the lower part of her knee incision. There is purulent fluid coming out of it. Wound culture sent. She is tachycardic upon my exam. We will do an ED sepsis workup on her. We will start vancomycin on her get blood cultures as well as start a liter IVF. I discussed with on-call orthopedic surgeon Dr. Mccray who states to get a knee xray. Will see her in consult. No other recommended antibiotics at this time. - Reevaluation(s) Reevaluation #1: Labwork shows a leukocytosis of 13. Patient also has signs of acute kidney injury. Creatinine at 1.43, elevated from her baseline of 0.81. IVF given. Lab work otherwise unremarkable. I discussed with the hospitalist Dr. Guillermo who has accepted patient for admission. Time: 21:30 Vital Signs Temperature 98.0 F 09/02/17 19:02 Pulse Rate 115 09/02/17 19:02 Respiratory Rate 14 09/02/17 19:02 Blood Pressure 106/76 09/02/17 19:02 O2 Sat by Pulse Oximetry 99 09/02/17 19:02 Temperature 98.0 F 09/02/17 19:02 Pulse Rate 115 09/02/17 19:02 Respiratory Rate 14 09/02/17 19:02 Blood Pressure 106/76 09/02/17 19:02 O2 Sat by Pulse Oximetry 99 09/02/17 19:02 Oxygen Delivery Oxygen Delivery Room Air Extremity Problem, Nontraumati - Medical Records Medical records reviewed: Yes I reviewed the patient's medical records. - Lab Data Lab results reviewed: Yes I reviewed the patient's lab results. Result diagrams: 09/02/17 19:33 09/02/17 19:33 Lab Results 09/02/17 09/02/17 09/02/17 Range/Units 19:33 19:33 19:33 WBC 13.8 H (4.3-11.1) K/mcL RBC 3.61 L (3.82-4.97) M/mcL Hgb 11.3 L (11.5-15.4) g/dL Hct 32.8 L (35.3-44.9) % MCV 90.9 (83.0-100.0) fL MCH 31.3 (28.0-33.3) pg MCHC 34.5 (31.6-35.5) g/dL RDW 13.4 (11.5-14.5) % Plt Count 356 (140-400) K/mcL MPV 10.1 (9.4-12.4) fL Immature Gran % 0.4 (0-4) % Seg Neutrophils % 67.2 % Lymphocytes % 22.2 % Monocytes % 5.8 % Eosinophils % 4.1 % Basophils % 0.3 % Neutrophils # 9.3 H (1.6-8.9) K/mcL Lymphocytes # 3.1 (0.6-4.6) K/mcL Monocytes # 0.8 (0.0-1.3) K/mcL Eosinophils # 0.6 (0.0-0.6) K/mcL Basophils # 0.0 (0.0-0.2) K/mcL Sodium 133 L (136-145) mEq/L Potassium 3.4 L (3.5-5.1) mEq/L Chloride 101 (98-107) mEq/L Carbon Dioxide 22 L (23-29) mEq/L BUN 25 H (6-20) mg/dL Creatinine 1.43 H (0.60-1.20) mg/dL Est GFR ( Amer) 47 L (> 60) Est GFR (Non-Af Amer) 39 L (> 60) BUN/Creatinine Ratio 17 (6-26) Glucose 124 H (70-105) mg/dL Calculated Osmolality 282 (280-300) Lactic Acid 2.0 (0.5-2.2) mmol/L Calcium 9.5 (8.6-10.3) mg/dL Phosphorus 3.5 (2.7-4.5) mg/dL Magnesium 1.9 (1.6-2.6) mg/dL - Radiology Data Radiology results reviewed: Yes I reviewed the patient's radiology results. Knee X-Ray 09/02/17 19:39 IMPRESSION: 1. Left knee arthroplasty with no acute abnormality. D/ / Ronald Kendall MD / Ronald Kendall MD Interpreting Provider: Ronald Kendall MD
[2017-09-02] MEDS ORDERED: Naloxone 0.4 MG/ML INJ IVP PRN (21:12)
--- NOTE | 2017-09-02 21:38 | Internal Med History&Physical ---
Date of Encounter: 09/02/17 Time of Encounter: 21:30 Internal Medicine - H&P: HPI Chief complaint: left knee infection Admitted From: Emergency Dept Plans for Post Hospital Care: Home History of present illness: Ms. Burns is a 51 year old female with past medical history of Gerd, depression , hypertension, obesity, FARAZ, migraines, osteoarthritis of the left knee. Patient had left total knee replacement on 08/06. She states that yesterday afternoon she started to notice redness on the left knee. Her knee was also hot and tender. She called her orthopedic surgeon who prescribed her Bactrim without any relief. Erythematous part of her knee continue to enlarge, and the lower part of her surgical incision began to ooze fluid that was at 1st clear but then became yellow and pustular. She admits to being drowsy and having dry mouth. She denies nausea, vomiting, diarrhea, fever, chills, chest pain, shortness of breath, hematuria, hematochezia, melena. She was told to come in to the hospital for IV antibiotics. Upon arrival to the ED, her heart rate was 115, blood pressure 106/76, she had leukocytosis. Patient was given one dose of vancomycin in the emergency department and one fluid bolus. Blood in one cultures were drawn in the emergency department. Past Med Surg Social Fam HX - Past Medical History Medical history: cancer, GERD, hypertension Psychiatric history: no psych history - Past Surgical History Surgical History: cholecystectomy, hysterectomy - Social History Smoking Status: Never smoker Smokeless Tobacco Status: No Alcohol use: occasionally Drug use: none Internal Medicine - H&P: Meds Cetirizine HCl [24Hour Allergy] 10 mg PO DAILY 05/03/17 [History] Escitalopram [Lexapro] 10 mg PO DAILY 05/03/17 [History] Levothyroxine Sodium [Levo-T] 175 mcg PO 0630 05/03/17 [History] Lisinopril/Hydrochlorothiazide [Zestoretic 10-12.5 mg Tablet] 1 tab PO DAILY [History] Omeprazole [PriLOSEC] 40 mg PO DAILY 05/03/17 [History] Topiramate [Topamax] 100 mg PO HS 05/03/17 [History] Aspirin Enteric Coated [Aspirin EC] 325 mg PO BID 10 Days #20 tablet. [Rx] 3 Allergy/AdvReac Type Severity Reaction Status Date / Time acetaminophen Allergy Hives Verified 08/06/17 10:31 [From Darvocet-N] codeine Allergy Anaphylaxis Verified 08/06/17 10:31 hydrocodone Allergy Anaphylaxis Verified 08/06/17 10:31 Hydromorphone [From Dilaudid] Allergy Hives Verified 08/06/17 10:31 meperidine [From Demerol] Allergy Hives Verified 08/06/17 10:31 morphine Allergy Hives Verified 08/06/17 10:31 Oxycodone [From Percocet] Allergy Hives Verified 08/06/17 10:31 propoxyphene Allergy Hives Verified 08/06/17 10:31 [From Darvocet-N] Sulfa (Sulfonamide Allergy Hives Verified 08/06/17 10:31 Antibiotics) sumatriptan [From Imitrex] Allergy Chest Pain Verified 08/06/17 10:31 tramadol [From Ultram] Allergy Hives Verified 08/06/17 10:31 All Systems PM: A 10-system review of systems was performed and is negative for pertinent findings except as documented above in the HPI. - Constitutional Constitutional: as per HPI - EENT Eyes: as per HPI Ears: as per HPI Nose, mouth and throat: as per HPI - Breasts Breasts: as per HPI - Cardiovascular Cardiovascular ROS IM: as per HPI - Respiratory Respiratory: as per HPI - Gastrointestinal Gastrointestinal: as per HPI - Genitourinary Genitourinary: as per HPI Menstruation: as per HPI - Musculoskeletal Musculoskeletal ROS IM: as per HPI - Integumentary Integumentary IM: as per HPI - Neurological Neurological ROS: as per HPI - Psychiatric Psychiatric: as per HPI - Endocrine Endocrine IM: as per HPI - Hematologic/Lymphatic Hematologic/Lymphatic: as per HPI - Allergic/Immunologic Allergic/Immunologic: as per HPI - Constitutional Vitals: Temp Pulse Resp BP Pulse Ox 98.0 F 115 14 106/76 99 09/02/17 19:02 09/02/17 19:02 09/02/17 19:02 09/02/17 19:02 09/02/17 19:02 General appearance: Present: A&O X 3, pleasant, no acute distress, obese, answers questions appropriately - Head Head exam: Present: atraumatic, normocephalic - Neck Neck exam general surgery: Present: supple, trachea midline - Respiratory Respiratory exam: Present: CTAB - Cardiovascular Cardiovascular exam: Present: RRR, +S1, +S3 - GI/Abdominal GI/Abdominal exam: Present: normal bowel sounds, soft. Absent: distended, tenderness - Extremities Exam Extremities exam: Absent: cyanotic, pedal edema Additional comments: Left knee warm, tender, large area of erythema going up to the mid-chilel. Surgical scar present from recent left knee replacement, lower part of surgical scar is open with pustular fluid draining - Neurological Exam Neurological exam: Present: alert, oriented X3, no focal deficits - Psychiatric Psychiatric exam: Present: normal affect, normal mood Internal Med - H&P Results - Labs CBC & Chem 7: 09/02/17 19:33 09/02/17 19:33 - Assessment and plan (1) Severe sepsis Current Visit: Yes Status: Acute Assessment and plan: had left knee replacement on 08/06 with provoked DVT at that time as well. Upon arrival she had heart rate 115, leukocytosis, Erendira source of infection suspected left septic knee left knee x-ray showed no acute abnormality plan: NPO after midnight IV fluids vancomycin, Zosyn day 1 blood and wound cultures pending hold Xarelto for now in anticipation of surgery tomorrow EPCDs hold lisinopril/HCTZ due to ERENDIRA (2) Septic joint Current Visit: Yes Status: Acute Assessment and plan: Plan as above Qualifiers: Septic arthritis location: knee Septic arthritis organism: due to unspecified organism Laterality: left Qualified Code(s): M00.9 - Pyogenic arthritis, unspecified (3) Status post total left knee replacement Current Visit: No Status: Acute Assessment and plan: Plan as above (4) ERENDIRA (acute kidney injury) Current Visit: Yes Status: Acute Assessment and plan: Creatinine 1.43, baseline creatinine is normal. Suspect secondary to severe sepsis, volume depletion plan: continue fluid boluses with maintenance fluids recheck kidney function in a.m. (5) Arthritis of left knee Current Visit: No Status: Chronic (6) FARAZ (obstructive sleep apnea) Current Visit: No Status: Chronic (7) HTN (hypertension) Current Visit: No Status: Chronic Assessment and plan: Hold antihypertensives for now in setting of Erendira and severe sepsis Qualifiers: Hypertension type: unspecified Qualified Code(s): I10 - Essential (primary ) hypertension (8) Hypothyroid Current Visit: No Status: Chronic Assessment and plan: Resumed home medications when reconciled Qualifiers: Hypothyroidism type: unspecified Qualified Code(s): E03.9 - Hypothyroidism , unspecified (9) GERD (gastroesophageal reflux disease) Current Visit: No Status: Chronic Assessment and plan: Resumed home medications when reconciled Qualifiers: Esophagitis presence: esophagitis presence not specified Qualified Code(s) : K21.9 - Gastro-esophageal reflux disease without esophagitis (10) Obesity Current Visit: No Status: Chronic Qualifiers: Obesity type: unspecified obesity type Obesity classification: unspecified obesity classification Serious obesity comorbidity presence: unspecified whether serious comorbidity present Qualified Code(s): E66.9 - Obesity, unspecified (11) History of DVT (deep vein thrombosis) Current Visit: Yes Status: Acute Assessment and plan: Has history of provoked DVT from left knee replacement on 08/06 currently she is on Xarelto 20 milligrams daily, and has taken her dose today. (12) DVT prophylaxis Current Visit: Yes Status: Acute Assessment and plan: Hold Xarelto for now in anticipation for surgery tomorrow EPCDs - Time Spent With Patient Total time spent is greater than 50% in coordination of care (as documented) at patient's floor/unit and/or counseling patient:
--- NOTE | 2017-09-02 21:44 | Event Note ---
Date of Encounter: 09/03/17 Time of Encounter: 21:40 Patient was seen and examined. I agree with the H&P as written by the Resident Physician. Patient is s/p left knee replacement on 08/06. Comes in with redness and pain in that knee. There is some drainage. She was put on Bactrim yesterday by her orthopedic doctor. Cultures sent from the ED and given vancomycin and ortho consulted. Labs show leukocytosis, ERENDIRA, hypokalemia. A/Ox3 RRR. S1, S2, no m/r/g CTAB Soft, NT, ND, +BS left knee with erythema, tenderness, small area of opening at distal knee with yellowish drainage Nonfocal Admit to hospitalist for cellulitis/septic prosthetic knee f/u on wound cultures f/u on blood cultures NPO after midnight ortho to see Vancomycin IV fluids Hold nephrotoxins Pain control Hold Xarelto (patient had post op DVT)
[2017-09-02] MEDS: 0.9 % Sodium Chloride 1,000 ML IVC SCH (23:03)
[2017-09-02] MEDS: Piperacillin/Tazobactam 3.375 GM in 0.9 % Sodium Chloride Mini Bag 100 ML IVPB SCH (23:50)
[2017-09-03] MEDS: Acetaminophen 325 MG TABLET PO PRN ×3 (00:12→21:01)
[2017-09-03 02:14] LABS: BUN/Creatinine Ratio 18 (6-26); Blood Urea Nitrogen 19 mg/dL (6-20); Calcium 8.8 mg/dL (8.6-10.3); Carbon Dioxide 21 mEq/L (23-29); Chloride 107 mEq/L (98-107); Glucose 126 mg/dL (70-105); Osmolality,Calculated 286 (280-300); Phosphorous 3.2 mg/dL (2.7-4.5); Potassium 3.5 mEq/L (3.5-5.1); Sodium 136 mEq/L (136-145); eGFR For African Americans > 60 (> 60); eGFR For Non-African Americans 55 (> 60)
[2017-09-03 02:28] LABS: Basophils # 0.1 K/mcL (0.0-0.2); Basophils % 0.4 %; Eosinophils # 0.8 K/mcL (0.0-0.6); Eosinophils % 6.5 %; Hematocrit 28.9 % (35.3-44.9); Immature Granulocytes % 0.3 % (0-4); Lymphocytes # 3.8 K/mcL (0.6-4.6); Lymphocytes % 32.6 %; Mean Corpuscular HGB Conc 34.6 g/dL (31.6-35.5); Mean Corpuscular Hemoglobin 31.3 pg (28.0-33.3); Mean Corpuscular Volume 90.3 fL (83.0-100.0); Mean Platelet Volume 10.3 fL (9.4-12.4); Monocytes # 0.8 K/mcL (0.0-1.3); Monocytes % 6.8 %; Neutrophils # 6.2 K/mcL (1.6-8.9); Platelet Count 290 K/mcL (140-400); Red Cell Distribution Width 13.4 % (11.5-14.5); Segmented Neutrophils % 53.4 %
[2017-09-03] MEDS: Gabapentin 300 MG CAPSULE PO SCH (08:46)
[2017-09-03] MEDS: Loratadine 10 MG TABLET PO SCH (08:46)
[2017-09-03] MEDS: Piperacillin/Tazobactam 3.375 GM in 0.9 % Sodium Chloride Mini Bag 100 ML IVPB SCH ×2 (08:47→17:05)
[2017-09-03] MEDS: Topiramate 100 MG TABLET PO SCH (08:47)
[2017-09-03] MEDS: 0.9 % Sodium Chloride 1,000 ML IVC SCH (12:12)
--- NOTE | 2017-09-03 22:23 | Orthopedics Progress Note ---
Date of Encounter: 09/03/17 Time of Encounter: 18:00 Subjective Principal diagnosis: L TKA post-op infection Interval history: Pt is POW # 4 s/p a L TKA with Dr. Ayala. Pt reported erythema on Sunday and was called in Bactrim by Dr. Ayala. On sunday, the pt noticed drainage from the wound and she was admitted on IV Vanco and Zosyn. Pt reports erythema improving. L knee: min swelling, mild erythema at distal end of incision, with small amount of purulent drainage from most distal 2 cm of wound. This is not fluctuant, and minimal pus expressed. A/ Post-op wound infectiion P:/ D/w the pt that this may still be superficial of localized at the distal end of incision. Will continue IV abx. Dr. Ayala will be in, in the morning to take a look at the wound. Objective Vital signs: Vital Signs Temp Pulse Resp BP Pulse Ox 09/03/17 18:56 98.1 F 100 18 104/74 98 09/03/17 16:44 98.9 F 82 15 94/64 98 09/03/17 11:35 98.0 F 81 17 109/75 95 09/03/17 07:13 98.6 F 84 15 112/60 97 09/03/17 03:52 98.5 F 91 14 108/74 97 09/02/17 22:25 97.5 F L 95 15 106/73 100 Intake and Output 09/03/17 09/03/17 09/03/17 07:59 15:59 23:59 Intake Total 1000 / 1000 1100 / 1100 840 / 840 Output Total 600 / 600 600 / 600 Balance 400 / 400 1100 / 1100 240 / 240 Intake: IV Fluids 100 / 100 1100 / 1100 350 / 350 0.9 % Sodium Chloride 1,000 ML 1000 / 1000 @ 80 mls/hr IVC .[id number] ANAI Rx #:[id number] Zosyn 3.375 GM In 0.9 % Sodium 100 / 100 100 / 100 100 / 100 Chloride (Mini-Bag +) 100 ML @ 25 mls/hr IVPB Q8HR ANAI Rx#: [id number] Vancocin 1,250 MG In 0.9 % 250 / 250 Sodium Chloride 250 ML @ 166.67 mls/hr IVPB Q12H ANAI Rx#: [id number] Oral 900 / 900 490 / 490 Output: Urine 600 / 600 600 / 600 Other: Meal Dinner Percent of Meal Consumed 0% - Labs CBC & BMP: 09/03/17 01:31 09/03/17 01:31 Labs: Abnormal lab results WBC 11.5 K/mcL (4.3-11.1) H 09/03/17 01:31 RBC 3.20 M/mcL (3.82-4.97) L 09/03/17 01:31 Hgb 10.0 g/dL (11.5-15.4) L 09/03/17 01:31 Hct 28.9 % (35.3-44.9) L 09/03/17 01:31 Eosinophils # 0.8 K/mcL (0.0-0.6) H 09/03/17 01:31 Carbon Dioxide 21 mEq/L (23-29) L 09/03/17 01:31 Est GFR (Non-Af Amer) 55 (> 60) L 09/03/17 01:31 Glucose 126 mg/dL (70-105) H 09/03/17 01:31 - VTE Documentation of Mechanical Device: Intermittent pneumatic compression device Consult Discharge Plan - Plan Referrals: Gianna Escalona CNP [Primary Care Provider] - Patty La DO [Family Provider] -
--- NOTE | 2017-09-03 23:20 | Internal Med Progress Note ---
Date of Encounter: 09/03/17 Time of Encounter: 19:00 - Assessment and plan (1) Sepsis Status: Acute Assessment and plan: Her sepsis is under control. Wbc decreased from 13.8 thousand to 11.5 thousand. Had wound culture trees growing Staphylococcus aureus. We will continue I-V Vancomycin IV Zosyn. The patient gets IV fluids at 80 mL per hour. Who will continue physical therapy. The patient will likely go to a group home facility soon. Qualifiers: Sepsis type: sepsis due to unspecified organism Qualified Code(s): A41.9 - Sepsis, unspecified organism (2) Septic joint Status: Acute Assessment and plan: The patient gets local wound care. She gets IV antibiotics, as outlined above. The patient is followed by orthopedic surgery. Qualifiers: Septic arthritis location: knee Septic arthritis organism: due to unspecified organism Laterality: left Qualified Code(s): M00.9 - Pyogenic arthritis, unspecified (3) ERENDIRA (acute kidney injury) Status: Resolved Assessment and plan: Better. Her creatinine decreased from 1.43 to 1.06. We continue IV normal saline at 80 mL per hour. (4) Acute hypokalemia Status: Acute Assessment and plan: The potassium continues to be low. It is 3.5 today. I will start her on oral potassium chlorate at 20 mEq twice a day. - Time Spent With Patient Total time spent is greater than 50% in coordination of care (as documented) at patient's floor/unit and/or counseling patient: 25 - 35 minutes - Subjective Interval history: The patient feels better. Swelling and redness of her left knee area has decreased significantly. It is the relatively mild. There is no drainage put on the surgical want. She has started physical therapy. - Constitutional Vitals: Temp Pulse Resp BP Pulse Ox 98.4 F 82 18 115/77 96 09/03/17 22:53 09/03/17 22:53 09/03/17 22:53 09/03/17 22:53 09/03/17 22:53 General appearance: Present: A&O X 3, pleasant, no acute distress, answers questions appropriately - Respiratory Respiratory exam: Present: CTAB. Absent: rales, rhonchi, wheezes - Cardiovascular Cardiovascular exam: Present: RRR, +S1, +S2. Absent: diastolic murmur, gallop, rubs, systolic murmur - GI/Abdominal GI/Abdominal exam: Present: normal bowel sounds, soft. Absent: distended, tenderness - Incison Incision: Absent: draining Comments: There is mild redness/swelling in the area of left knee. There is no discharge from the wound. Internal Medicine: Result - Labs CBC & Chem 7: 09/05/17 01:46 09/05/17 01:46 Labs: Short CBC 09/03/17 Range/Units 01:31 WBC 11.5 H (4.3-11.1) K/mcL Hgb 10.0 L (11.5-15.4) g/dL Hct 28.9 L (35.3-44.9) % Plt Count 290 (140-400) K/mcL Neutrophils # 6.2 (1.6-8.9) K/mcL BMP 09/03/17 01:31 Sodium 136 Potassium 3.5 Chloride 107 Carbon Dioxide 21 L BUN 19 Creatinine 1.06 Glucose 126 H Calcium 8.8 - VTE Documentation of Mechanical Device: Intermittent pneumatic compression device Consult Discharge Plan - Plan Additional Instructions: Follow up with PCP in 2-3 days after discharge. Recheck BMP at that time (ERENDIRA) . Follow up with orthopedic surgeon as directed. Referrals: Arleen Barrios PAC [Physician Junior Staff Accountant] - 09/07/17 2:30 pm Gianna Escalona CNP [Primary Care Provider] - Patty La DO [Family Provider] - Prescriptions: Doxycycline Hyclate 100 mg PO Q12H 10 Days #20 tablet
[2017-09-04] MEDS: Piperacillin/Tazobactam 3.375 GM in 0.9 % Sodium Chloride Mini Bag 100 ML IVPB SCH ×3 (00:35→16:19)
[2017-09-04] MEDS: 0.9 % Sodium Chloride 1,000 ML IVC SCH ×2 (00:36→14:46)
[2017-09-04 01:35] LABS: Hematocrit 30.1 % (35.3-44.9); Hemoglobin 9.7 g/dL (11.5-15.4); Mean Corpuscular HGB Conc 32.2 g/dL (31.6-35.5); Mean Corpuscular Hemoglobin 29.7 pg (28.0-33.3); Mean Platelet Volume 9.7 fL (9.4-12.4); Platelet Count 254 K/mcL (140-400); Red Blood Count 3.27 M/mcL (3.82-4.97); Red Cell Distribution Width 13.2 % (11.5-14.5)
[2017-09-04 01:58] LABS: BUN/Creatinine Ratio 15 (6-26); Blood Urea Nitrogen 14 mg/dL (6-20); Calcium 8.7 mg/dL (8.6-10.3); Carbon Dioxide 21 mEq/L (23-29); Chloride 113 mEq/L (98-107); Glucose 102 mg/dL (70-105); Osmolality,Calculated 289 (280-300); Potassium 4.3 mEq/L (3.5-5.1); Sodium 139 mEq/L (136-145); eGFR For African Americans > 60 (> 60); eGFR For Non-African Americans > 60 (> 60)
[2017-09-04] MEDS: Acetaminophen 325 MG TABLET PO PRN (04:49)
--- NOTE | 2017-09-04 06:47 | Orthopedics Progress Note ---
Date of Encounter: 09/04/17 Time of Encounter: 06:46 Subjective Principal diagnosis: L TKA post-op infection Interval history: Patient seen this morning reports improvement in erythema and swelling. This is confirmed by the nurse. Small area distal aspect of incision with minimal drainage. No swelling around the knee or erythema. Patient to continue on IV antibiotics for 24 hours plan for discharge in the morning. Consistent with superficial cellulitis minimal concern for intra-articular process. Objective Vital signs: Vital Signs Temp Pulse Resp BP Pulse Ox 09/04/17 03:33 98.1 F 78 18 100/60 97 09/03/17 22:53 98.4 F 82 18 115/77 96 09/03/17 18:56 98.1 F 100 18 104/74 98 09/03/17 16:44 98.9 F 82 15 94/64 98 09/03/17 11:35 98.0 F 81 17 109/75 95 09/03/17 07:13 98.6 F 84 15 112/60 97 Intake and Output 09/03/17 09/03/17 09/04/17 15:59 23:59 07:59 Intake Total 1100 / 1100 1140 / 1140 1650 / 1650 Output Total 1000 / 1000 1670 / 1670 Balance 1100 / 1100 140 / 140 -20 / -20 Intake: IV Fluids 1100 / 1100 350 / 350 1350 / 1350 0.9 % Sodium Chloride 1,000 ML 1000 / 1000 1000 / 1000 @ 80 mls/hr IVC .[id number] ANAI Rx #:[id number] Zosyn 3.375 GM In 0.9 % Sodium 100 / 100 100 / 100 100 / 100 Chloride (Mini-Bag +) 100 ML @ 25 mls/hr IVPB Q8HR ANAI Rx#: [id number] Vancocin 1,250 MG In 0.9 % 250 / 250 250 / 250 Sodium Chloride 250 ML @ 166.67 mls/hr IVPB Q12H ANAI Rx#: [id number] Oral 790 / 790 300 / 300 Output: Urine 1000 / 1000 1670 / 1670 Other: Meal Dinner Percent of Meal Consumed 0% # Voids 1 - Labs CBC & BMP: 09/04/17 01:20 09/04/17 01:20 Labs: Abnormal lab results RBC 3.27 M/mcL (3.82-4.97) L 09/04/17 01:20 Hgb 9.7 g/dL (11.5-15.4) L 09/04/17 01:20 Hct 30.1 % (35.3-44.9) L 09/04/17 01:20 Eosinophils # 0.8 K/mcL (0.0-0.6) H 09/03/17 01:31 ESR 29 mm/hr (0-15) H 09/04/17 01:20 Chloride 113 mEq/L (98-107) H 09/04/17 01:20 Carbon Dioxide 21 mEq/L (23-29) L 09/04/17 01:20 - VTE Documentation of Mechanical Device: Intermittent pneumatic compression device Consult Discharge Plan - Plan Referrals: Gianna Escalona, KATHLEEN [Primary Care Provider] - Patty La DO [Family Provider] -
[2017-09-04] MEDS: Topiramate 100 MG TABLET PO SCH (08:50)
[2017-09-04] MEDS: Gabapentin 300 MG CAPSULE PO SCH (08:50)
[2017-09-04] MEDS: Loratadine 10 MG TABLET PO SCH (08:50)
[2017-09-04] MEDS ORDERED: Aminoglycoside Consult 1 EACH MC ONE (11:30)
--- NOTE | 2017-09-04 11:50 | Internal Med Progress Note ---
Date of Encounter: 09/04/17 Time of Encounter: 11:48 - Assessment and plan (1) Arthritis of left knee Current Visit: Yes Status: Chronic (2) FARAZ (obstructive sleep apnea) Current Visit: Yes Status: Chronic (3) Status post total left knee replacement Current Visit: Yes Status: Acute Assessment and plan: Management per orthopedics; appreciate input (4) HTN (hypertension) Current Visit: Yes Status: Chronic Assessment and plan: Hold antihypertensives for now as normotensive. Qualifiers: Hypertension type: unspecified Qualified Code(s): I10 - Essential (primary ) hypertension (5) Hypothyroid Current Visit: Yes Status: Chronic Assessment and plan: Continue home levothyroxine. Qualifiers: Hypothyroidism type: unspecified Qualified Code(s): E03.9 - Hypothyroidism , unspecified (6) GERD (gastroesophageal reflux disease) Current Visit: Yes Status: Chronic Assessment and plan: Continue home omeprazole. Qualifiers: Esophagitis presence: esophagitis presence not specified Qualified Code(s) : K21.9 - Gastro-esophageal reflux disease without esophagitis (7) Obesity Current Visit: No Status: Chronic Qualifiers: Obesity type: unspecified obesity type Obesity classification: unspecified obesity classification Serious obesity comorbidity presence: unspecified whether serious comorbidity present Qualified Code(s): E66.9 - Obesity, unspecified (8) Severe sepsis Current Visit: Yes Status: Resolved Assessment and plan: Resolved. Continue IV antibiotics for left knee cellulitis. (9) History of DVT (deep vein thrombosis) Current Visit: Yes Status: Chronic Assessment and plan: Restart home xarelto today. (10) DVT prophylaxis Current Visit: Yes Status: Acute Assessment and plan: Restarted home xarelto today. (11) ERENDIRA (acute kidney injury) Current Visit: Yes Status: Resolved Assessment and plan: Resolved. (12) Septic joint Current Visit: Yes Status: Acute Assessment and plan: Orthopedics consulted; appreciate input. They do not think it is septic joint, but more likely superficial cellulitis. Per their recommendations, will finish one more day of IV vancomycin and IV zosyn, and plan for discharge home tomorrow with outpatient orthopedics follow up. Qualifiers: Septic arthritis location: knee Septic arthritis organism: due to unspecified organism Laterality: left Qualified Code(s): M00.9 - Pyogenic arthritis, unspecified - Time Spent With Patient Total time spent is greater than 50% in coordination of care (as documented) at patient's floor/unit and/or counseling patient: less than 15 minutes - Subjective Interval history: Patient had no acute events overnight. She has no complaints today. She denies fever, chills, nausea, vomiting, chest pain, or SOB. - Constitutional Vitals: Temp Pulse Resp BP Pulse Ox 98.6 F 86 16 116/81 95 09/04/17 10:40 09/04/17 10:40 09/04/17 10:40 09/04/17 10:40 09/04/17 10:40 General appearance: Present: A&O X 3, pleasant, no acute distress, obese, answers questions appropriately - Respiratory Respiratory exam: Present: CTAB. Absent: accessory muscle use, rales, rhonchi, wheezes Additional comments: Normal WOB - Cardiovascular Cardiovascular exam: Present: RRR, +S1, +S2. Absent: diastolic murmur, gallop, rubs, systolic murmur Additional comments: No BLE edema - GI/Abdominal GI/Abdominal exam: Present: normal bowel sounds, soft. Absent: distended, hepatomegaly, mass, splenomegaly, tenderness - Psychiatric Psychiatric exam: Present: normal affect, normal mood. Absent: agitated, anxious, depressed - Skin Skin exam: Present: dry, warm. Absent: cyanosis Additional comments: Trace edema and minimal erythema of lower left knee, no TTP, mild serosanguinous drainage of lower aspect of vertical incision Internal Medicine: Result - Labs CBC & Chem 7: 09/04/17 01:20 09/04/17 01:20 Labs: Short CBC 09/04/17 Range/Units 01:20 WBC 7.8 (4.3-11.1) K/mcL Hgb 9.7 L (11.5-15.4) g/dL Hct 30.1 L (35.3-44.9) % Plt Count 254 (140-400) K/mcL BMP 09/04/17 01:20 Sodium 139 Potassium 4.3 Chloride 113 H Carbon Dioxide 21 L BUN 14 Creatinine 0.93 Glucose 102 Calcium 8.7 - VTE Contraindication No Overlap Therapy: Admin of oral Factor Xa Inhibitor Consult Discharge Plan - Plan Referrals: Gianna sEcalona, KATHLEEN [Primary Care Provider] - Patty La DO [Family Provider] -
[2017-09-04] MEDS ORDERED: *HR* Rivaroxaban 10 MG TABLET PO SCH (17:00)
--- NOTE | 2017-09-04 18:00 | Event Note ---
Date of Encounter: 09/04/17 Time of Encounter: 12:30 PCR- patient is status post Left robotic-assisted Total knee replacement. Date of surgery 08-06-[address] Ayala Patient seen at bedside. Her 3 children at the bedside. Labwork and medications reviewed. Pain control: Adequate Participating in PT. All questions and concerns addressed. Educated on use of incentive spirometer, ambulation, and hydration. Patient educated on post-operative restrictions and care. Addressed: Patient with new cellulitis and infection surrounding distal incision aspect. Patient states that she spoke with Dr. Lara the weekend and came to the ER for evaluation and was subsequently admitted for IV antibiotics. Discussed with DrRosario: The plan for 1 more day of IV antibiotics planned for discharge tomorrow on 09/05/17 with transition to oral antibiotics. We will select doxycycline secondary to recommendation by Dr. Ayala
[2017-09-05] MEDS: Piperacillin/Tazobactam 3.375 GM in 0.9 % Sodium Chloride Mini Bag 100 ML IVPB SCH ×2 (00:20→08:01)
[2017-09-05 02:10] LABS: Basophils # 0.1 K/mcL (0.0-0.2); Basophils % 0.7 %; Eosinophils # 0.8 K/mcL (0.0-0.6); Eosinophils % 10.1 %; Hematocrit 29.2 % (35.3-44.9); Hemoglobin 9.8 g/dL (11.5-15.4); Immature Granulocytes % 0.3 % (0-4); Lymphocytes # 3.6 K/mcL (0.6-4.6); Lymphocytes % 47.7 %; Mean Corpuscular HGB Conc 33.6 g/dL (31.6-35.5); Mean Corpuscular Hemoglobin 30.4 pg (28.0-33.3); Mean Corpuscular Volume 90.7 fL (83.0-100.0); Mean Platelet Volume 10.1 fL (9.4-12.4); Monocytes # 0.5 K/mcL (0.0-1.3); Monocytes % 6.8 %; Neutrophils # 2.6 K/mcL (1.6-8.9); Platelet Count 266 K/mcL (140-400); Red Blood Count 3.22 M/mcL (3.82-4.97); Red Cell Distribution Width 13.3 % (11.5-14.5); Segmented Neutrophils % 34.4 %
[2017-09-05 02:28] LABS: BUN/Creatinine Ratio 14 (6-26); Blood Urea Nitrogen 12 mg/dL (6-20); Calcium 8.8 mg/dL (8.6-10.3); Carbon Dioxide 22 mEq/L (23-29); Chloride 111 mEq/L (98-107); Glucose 105 mg/dL (70-105); Osmolality,Calculated 286 (280-300); Potassium 3.7 mEq/L (3.5-5.1); Sodium 138 mEq/L (136-145); eGFR For African Americans > 60 (> 60); eGFR For Non-African Americans > 60 (> 60)
--- NOTE | 2017-09-05 06:38 | Orthopedics Progress Note ---
Date of Encounter: 09/05/17 Time of Encounter: 06:36 Subjective Principal diagnosis: L TKA post-op infection Interval history: Patient doing better erythema resolved no drainage discharged today by mouth antibiotics. Staph from wound culture Objective Vital signs: Vital Signs Temp Pulse Resp BP Pulse Ox 09/05/17 03:53 98.1 F 80 18 122/81 97 09/04/17 23:09 98.0 F 87 18 112/73 96 09/04/17 20:00 99 09/04/17 18:32 98.8 F 96 20 100/66 99 09/04/17 15:27 98.5 F 80 16 132/84 99 09/04/17 10:40 98.6 F 86 16 116/81 95 09/04/17 06:51 97.6 F 74 16 98/65 97 Intake and Output 09/04/17 09/04/17 09/05/17 15:59 23:59 07:59 Intake Total 1340 / 1340 850 / 850 300 / 300 Output Total 1100 / 1100 2100 / 2100 Balance 240 / 240 850 / 850 -1800 / -1800 Intake: IV Fluids 1100 / 1100 350 / 350 100 / 100 0.9 % Sodium Chloride 1,000 ML 1000 / 1000 @ 80 mls/hr IVC .[id number] ANAI Rx #:[id number] Zosyn 3.375 GM In 0.9 % Sodium 100 / 100 100 / 100 100 / 100 Chloride (Mini-Bag +) 100 ML @ 25 mls/hr IVPB Q8HR ANAI Rx#: [id number] Vancocin 1,250 MG In 0.9 % 250 / 250 Sodium Chloride 250 ML @ 166.67 mls/hr IVPB Q12H ANAI Rx#: [id number] Oral 240 / 240 500 / 500 200 / 200 Output: Urine 1100 / 1100 2100 / 2100 Other: Meal Breakfast Percent of Meal Consumed 100% # Voids 1 - Labs CBC & BMP: 09/05/17 01:46 09/05/17 01:46 Labs: Abnormal lab results RBC 3.22 M/mcL (3.82-4.97) L 09/05/17 01:46 Hgb 9.8 g/dL (11.5-15.4) L 09/05/17 01:46 Hct 29.2 % (35.3-44.9) L 09/05/17 01:46 Eosinophils # 0.8 K/mcL (0.0-0.6) H 09/05/17 01:46 ESR 29 mm/hr (0-15) H 09/04/17 01:20 Chloride 111 mEq/L (98-107) H 09/05/17 01:46 Carbon Dioxide 22 mEq/L (23-29) L 09/05/17 01:46 Vancomycin Trough 15 mcg/mL (5-10) H 09/04/17 12:10 - VTE Documentation of Mechanical Device: Intermittent pneumatic compression device Contraindication No Overlap Therapy: Admin of oral Factor Xa Inhibitor Consult Discharge Plan - Plan Referrals: Gianna Escalona, KATHLEEN [Primary Care Provider] - Patty La DO [Family Provider] -
[2017-09-05] MEDS: Loratadine 10 MG TABLET PO SCH (08:02)
[2017-09-05] MEDS: Topiramate 100 MG TABLET PO SCH (08:02)
[2017-09-05] MEDS: Gabapentin 300 MG CAPSULE PO SCH (08:02)
[2017-09-05 08:06] VITALS: BP 119/81
--- NOTE | 2017-09-05 10:05 | Discharge Summary ---
- NOTES TO OUTPATIENT PROVIDER Notes to Outpatient Provider: Follow up with PCP in 2-3 days after discharge. Recheck BMP at that time (ERENDIRA). Follow up with orthopedic surgeon as directed. Date of Encounter: 09/05/17 Time of Encounter: 10:03 - Discharge Diagnosis (1) Severe sepsis Priority: Primary Status: Resolved (2) Septic joint Priority: Secondary Status: Acute Qualifiers: Septic arthritis location: knee Septic arthritis organism: due to unspecified organism Laterality: left Qualified Code(s): M00.9 - Pyogenic arthritis, unspecified (3) ERENDIRA (acute kidney injury) Priority: Secondary Status: Resolved (4) Arthritis of left knee Priority: Secondary Status: Chronic (5) FARAZ (obstructive sleep apnea) Priority: Secondary Status: Chronic (6) Status post total left knee replacement Priority: Secondary Status: Acute (7) HTN (hypertension) Priority: Secondary Status: Chronic Qualifiers: Hypertension type: unspecified Qualified Code(s): I10 - Essential (primary ) hypertension (8) Hypothyroid Priority: Secondary Status: Chronic Qualifiers: Hypothyroidism type: unspecified Qualified Code(s): E03.9 - Hypothyroidism , unspecified (9) GERD (gastroesophageal reflux disease) Priority: Secondary Status: Chronic Qualifiers: Esophagitis presence: esophagitis presence not specified Qualified Code(s) : K21.9 - Gastro-esophageal reflux disease without esophagitis (10) Obesity Priority: Secondary Status: Chronic Qualifiers: Obesity type: unspecified obesity type Obesity classification: unspecified obesity classification Serious obesity comorbidity presence: unspecified whether serious comorbidity present Qualified Code(s): E66.9 - Obesity, unspecified (11) History of DVT (deep vein thrombosis) Priority: Secondary Status: Chronic (12) DVT prophylaxis Priority: Secondary Status: Acute Hospital course: Ms. Burns is a 51 year old female admitted for sepsis likely secondary to left septic knee. Patient was admitted to orthopedic floor with telemetry. She was started on IVF, IV vancomycin, and IV zosyn. Sepsis and ERENDIRA resolved after admission. Erythema and edema of left knee continued to improve throughout hospitalization. Orthopedic surgery was consulted and felt the infection was more superficial, likely a cellulitis. They transitioned her to PO doxycycline at discharge. She will follow up with PCP in 2-3 days after discharge. She will follow up with orthopedic surgery in 1 weeks as directed. Patient has met maximum benefit of this hospitalization and will be discharged home in stable condition. Discharge discussed with: patient, nurse - Time Spent with Patient Total time spent providing and/or coordinating discharge services: Greater than 30 minutes - Discharge Medications Prescriptions: Doxycycline Hyclate 100 mg PO Q12H 10 Days #20 tablet Home Medications: Cetirizine HCl [24Hour Allergy] 10 mg PO DAILY 05/03/17 [History] Escitalopram [Lexapro] 10 mg PO DAILY 05/03/17 [History] Levothyroxine Sodium [Levo-T] 175 mcg PO DAILY 05/03/17 [History] Lisinopril/Hydrochlorothiazide [Zestoretic 10-12.5 mg Tablet] 1 tab PO DAILY [History] Omeprazole [PriLOSEC] 40 mg PO DAILY 05/03/17 [History] Topiramate [Topamax] 100 mg PO DAILY 05/03/17 [History] Cyclobenzaprine [Flexeril] 10 mg PO TID 09/02/17 [History] Gabapentin [Neurontin] 600 mg PO BID 09/02/17 [History] Rivaroxaban [Xarelto] 20 mg PO DAILY 09/02/17 [History] Doxycycline Hyclate 100 mg PO Q12H 10 Days #20 tablet 09/05/17 [Rx] Allergies/Adverse Reactions: 3 Allergy/AdvReac Type Severity Reaction Status Date / Time acetaminophen Allergy Hives Verified 08/06/17 10:31 [From Darvocet-N] codeine Allergy Anaphylaxis Verified 08/06/17 10:31 hydrocodone Allergy Anaphylaxis Verified 08/06/17 10:31 Hydromorphone [From Dilaudid] Allergy Hives Verified 08/06/17 10:31 meperidine [From Demerol] Allergy Hives Verified 08/06/17 10:31 morphine Allergy Hives Verified 08/06/17 10:31 Oxycodone [From Percocet] Allergy Hives Verified 08/06/17 10:31 propoxyphene Allergy Hives Verified 08/06/17 10:31 [From Darvocet-N] Sulfa (Sulfonamide Allergy Hives Verified 08/06/17 10:31 Antibiotics) sumatriptan [From Imitrex] Allergy Chest Pain Verified 08/06/17 10:31 tramadol [From Ultram] Allergy Hives Verified 08/06/17 10:31 Date of admission: 09/02/17 20:55 Primary care physician: Gianna Escalona CNP Consults: Orthopedic Surgery Discharging clinician: Ming Crews Anticipated date of discharge: 09/05/17 - Constitutional Vitals: Temp Pulse Resp BP Pulse Ox 98.7 F 95 17 119/81 96 09/05/17 08:05 09/05/17 08:05 09/05/17 08:05 09/05/17 08:05 09/05/17 08:05 General appearance: Present: cooperative, A&O X 3, pleasant, no acute distress, obese, answers questions appropriately - Respiratory Respiratory exam: Present: CTAB. Absent: accessory muscle use, rales, rhonchi, wheezes Additional comments: Normal WOB - Cardiovascular Cardiovascular exam: Present: RRR, +S1, +S2. Absent: diastolic murmur, gallop, rubs, systolic murmur Additional comments: No BLE edema - GI/Abdominal GI/Abdominal exam: Present: normal bowel sounds, soft. Absent: distended, hepatomegaly, mass, splenomegaly, tenderness - Extremities Exam Additional comments: Left knee with no erythema or edema, incision intact with no drainage, bandage in place on lower knee - Psychiatric Psychiatric exam: Present: normal affect, normal mood. Absent: agitated, anxious, depressed - Skin Skin exam: Present: dry, intact, warm. Absent: cyanosis, rash - Patient Status Disposition: Home, Self-Care Condition: Good Overall status at discharge: patient is progressing back to baseline - Discharge Instructions Follow Up With: Gianna Escalona CNP [Primary Care Provider] - Patty La DO [Family Provider] - Additional Instructions: Follow up with PCP in 2-3 days after discharge. Recheck BMP at that time (ERENDIRA) . Follow up with orthopedic surgeon as directed. - Diet and Activity Activity: as per physical therapy Diet: low fat, low cholesterol, low salt diet, other (Cardiac Diet) - VTE Documentation of Mechanical Device: Intermittent pneumatic compression device Contraindication No Overlap Therapy: Admin of oral Factor Xa Inhibitor
--- NOTE | 2017-09-05 11:03 | Event Note ---
Date of Encounter: 09/05/17 Time of Encounter: 08:30 PCR- patient is status post Left robotic-assisted Total knee replacement. Date of surgery 08-06-[address] Ayala Patient seen at bedside. Labwork and medications reviewed. Pain control: Adequate Participating in PT. All questions and concerns addressed. Educated on use of incentive spirometer, ambulation, and hydration. Patient educated on post-operative restrictions and care. Addressed: Patient to transition to by mouth antibiotics (doxycycline) on discharge. Patient is to complete receiving the IV antibiotics today prior to discharge. She is to be discharged by hospitalist. She is to follow-up in our office this Sunday as scheduled.
== END 2017-09-05 11:31 | disposition home or self-care (01) | DRG 344 ==
LOC: EMEROO 19:01 → 3NENU 19:01 → OBSVTOIN 20:55 → SUATTDRO 20:55 → 3NENU 21:23
PROVIDERS: ADMIT Internal Medicine; ATTEND Internal Medicine

== ENCOUNTER 2020-04-01 09:46 | Inpatient (IN) ==
[2020-04-01] MEDS ORDERED: Vancomycin 1,500 MG/265 ML IV.SOLN IVPB ONE ×2 (10:09→23:45)
[2020-04-01] MEDS ORDERED: Ondansetron 4 MG/2 ML VIAL ONE (10:19)
[2020-04-01] MEDS ORDERED: Tranexamic Acid 1,000 MG/10 ML VIAL ONE (10:20)
[2020-04-01] MEDS ORDERED: Lidocaine -MPF 2% 2 ML VIAL ONE (10:20)
[2020-04-01] MEDS ORDERED: Ethanol\\Acetic Acid\\Na Ace\\Ben 1,000 ML IRRIG.SOLN IR ONE (10:45)
[2020-04-01] MEDS ORDERED: Vancomycin 1,000 MG VIAL ONE (10:45)
[2020-04-01] MEDS ORDERED: *HR* Midazolam HCl 2 MG/2 ML VIAL ONE (10:47)
[2020-04-01] MEDS ORDERED: *HR* FentaNYL (PF) 100 MCG/2 ML VIAL ONE (10:48)
[2020-04-01] MEDS ORDERED: Ropivacaine/PF 0.5% 30 ML VIAL ONE (10:48)
[2020-04-01] MEDS ORDERED: Ondansetron 4 MG/2 ML VIAL IVP PRN ×2 (10:55→14:16)
[2020-04-01] MEDS ORDERED: Albuterol 2.5 MG/3 ML NEBULIZER IH PRN (10:55)
[2020-04-01] MEDS ORDERED: Ipratropium Neb 0.5 MG NEBULIZER IH PRN (10:55)
[2020-04-01] MEDS ORDERED: Pregabalin 50 MG CAPSULE PO ONE ×2 (10:55→11:00)
[2020-04-01] MEDS ORDERED: Naloxone 0.4 MG/ML INJ IVP PRN ×2 (10:55→14:16)
[2020-04-01] MEDS ORDERED: *HR* FentaNYL (PF) 100 MCG/2 ML VIAL IVP PRN (10:55)
[2020-04-01] MEDS ORDERED: Famotidine 20 MG/2 ML VIAL IVP ONE (11:00)
[2020-04-01] MEDS ORDERED: Ringers Solution, Lactated 1,000 ML IVC ONE (11:00)
[2020-04-01] MEDS ORDERED: Acetaminophen IV 1,000 MG/100 ML BAG IVPB ONE (11:00)
[2020-04-01] MEDS ORDERED: Dexamethasone 4 MG/ML VIAL ONE (11:43)
[2020-04-01] MEDS ORDERED: *HR* Propofol 200 MG/20 ML VIAL IVP ONE ×2 (12:04→12:41)
[2020-04-01] MEDS ORDERED: Povidone-Iodine 45 ML, Sodium Chloride IRRigation 1,000 ML IR ONE (13:20)
[2020-04-01] MEDS ORDERED: TOTAL JOINT MIXTURE (100ML) INTRAART ONE (13:20)
[2020-04-01 13:21] LABS: Hemoglobin 13.3 g/dL (11.5-15.4)
[2020-04-01] MEDS ORDERED: *HR* OxyCODONE Immed Rel 5 MG TABLET PO PRN (14:16)
[2020-04-01] MEDS ORDERED: *HR* Dextrose 50 % in Water (Vial) 50 ML VIAL IVP PRN (14:16)
[2020-04-01] MEDS ORDERED: *HR* OxyCODONE/APAP 5/325 TABLET PO PRN (14:16)
[2020-04-01] MEDS ORDERED: Ringers Solution, Lactated 1,000 ML IVC SCH (14:16)
[2020-04-01] MEDS ORDERED: D5% in Water 1,000 ML IVC PRN (14:16)
[2020-04-01] MEDS ORDERED: Dextrose Gel 15 GM/37.5 ML TUBE PO PRN ×2 (14:16)
[2020-04-01] MEDS ORDERED: MOM Conc 10 ML UD.LIQ PO PRN (14:16)
[2020-04-01] MEDS ORDERED: *HR* Promethazine 25 MG/ML VIAL IM PRN (14:16)
[2020-04-01] MEDS ORDERED: Sennosides 8.6 MG TABLET PO PRN (14:16)
[2020-04-01] MEDS ORDERED: Ascorbic Acid 500 MG TABLET PO SCH (17:00)
[2020-04-01] MEDS: Insulin LISPRO 300 UNITS/3 ML VIAL SUBQ SCH ×2 (17:48→17:49)
[2020-04-01] MEDS: CeFAZolin 2 GM/120 ML BAG IVPB SCH ×2 (18:13→23:58)
[2020-04-01] MEDS ORDERED: Ketorolac 15 MG/ML VIAL IVP PRN (20:43)
[2020-04-01] MEDS ORDERED: Insulin LISPRO 300 UNITS/3 ML VIAL SUBQ SCH (21:00)
[2020-04-02 07:27] VITALS: BP 107/68
[2020-04-02 07:40] LABS: Basophils % 0.1 %; Hematocrit 35.6 % (35.3-44.9); Immature Granulocytes % 0.6 % (0-4); Lymphocytes # 2.5 K/mcL (0.6-4.6); Lymphocytes % 13.8 %; Mean Corpuscular HGB Conc 32.3 g/dL (31.6-35.5); Mean Corpuscular Hemoglobin 29.3 pg (28.0-33.3); Mean Corpuscular Volume 90.6 fL (83.0-100.0); Mean Platelet Volume 10.5 fL (9.4-12.4); Monocytes % 5.3 %; Platelet Count 280 K/mcL (140-400); Red Blood Count 3.93 M/mcL (3.82-4.97); Red Cell Distribution Width 13.1 % (11.5-14.5); Segmented Neutrophils % 80.2 %
[2020-04-02 07:52] LABS: Hemoglobin 11.5 g/dL (11.5-15.4); Neutrophils # 14.4 K/mcL (1.6-8.9)
[2020-04-02 07:57] LABS: BUN/Creatinine Ratio 21 (6-26); Blood Urea Nitrogen 19 mg/dL (6-20); Calcium 8.8 mg/dL (8.6-10.3); Carbon Dioxide 24 mEq/L (23-29); Chloride 105 mEq/L (98-107); Glucose 125 mg/dL (70-105); Osmolality,Calculated 286 (280-300); Potassium 3.7 mEq/L (3.5-5.1); Sodium 136 mEq/L (136-145); eGFR For African Americans > 60 (> 60); eGFR For Non-African Americans > 60 (> 60)
[2020-04-02] MEDS ORDERED: Loratadine 10 MG TABLET PO SCH (09:00)
[2020-04-02] MEDS ORDERED: Topiramate 100 MG TABLET PO SCH (09:00)
[2020-04-02] MEDS ORDERED: Aspirin Enteric Coated 81 MG Tablet PO SCH ×2 (09:00)
[2020-04-02] MEDS ORDERED: Multivit/Ca/Min/Fe/FA 1 TAB TABLET PO SCH (09:00)
== END 2020-04-02 10:02 | disposition home health service (06) | DRG 325 ==
LOC: SAMDAY 09:46 → 3NENU 14:05
PROVIDERS: ADMIT Orthopaedic Surgery; ATTEND Orthopaedic Surgery